=== PATIENT | female | born 1975 | race African-American/Black ===

== ENCOUNTER 2018-10-18 15:00 | Outpatient (CLI) | payer OTHER ==
--- NOTE | 2018-10-18 16:23 | MMO ---
BILATERAL MAMMOGRAMS: DATE: 10/18/18 HISTORY: Screening mammography. COMPARISON: None available. Baseline study. FINDINGS: Heterogeneously dense fibroglandular tissue and benign-appearing calcifications. No dominant mass or suspicious calcifications. The study was evaluated with the assistance of computer-aided detection. IMPRESSION: BIRADS 1: Negative Suggest routine follow-up. POS: BISMARK
== END 2018-10-18 15:01 | disposition home or self-care (01) ==
LOC: SCSMAMMO 15:00
PROVIDERS: ATTEND Nurse Practitioner Family
DX: Z12.31 Encounter for screening mammogram for malignant neoplasm of breast (principal)
CPT/HCPCS: 77067

== ENCOUNTER 2018-11-12 14:31 | Outpatient (CLI) | payer OTHER ==
--- NOTE | 2018-11-12 17:12 | MRI ---
[facility] brain with and without contrast: 11/12/2018 HISTORY: 43-year-old female with seizure. 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 Mesial temporal lobe structures are bilaterally symm etrical. No evidence of recent or remote intra-axial hemorrhage, restricted diffusion, abnormal enhan cement, mass, mass effect, midline shift, or extra-axial fluid collection. There is a small focus of encephalomalacia and gliosis (including a thin strip of hyperintense T2 signal (best visualized on fl air axial image 15 of 30, series 3)) involving right anterior parasagittal frontal lobe cortex consis tent with an old insult. There is no other significant intra-axial signal abnormality. 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
== END 2018-11-12 14:32 | disposition home or self-care (01) ==
LOC: SCSMRI 14:31
PROVIDERS: ATTEND Psychiatry & Neurology Neurology
DX: G40.409 Other generalized epilepsy and epileptic syndromes, not intractable, without status epilepticus (principal); G93.89 Other specified disorders of brain
CPT/HCPCS: 70553